=== PATIENT | male | born 1990 | race Caucasian/White ===

== ENCOUNTER 2023-07-29 18:13 | Inpatient (IN) | payer MEDICARE, MEDICAID ==
[~2023-07-29] VITALS: Ht 195.6 cm; Wt 133.4 kg
[~2023-07-29 18:13] MED LIST: DIVA-153 PO; QUET200T PO; TRAZ-257 PO
[2023-07-29] MEDS ORDERED: CHLO100T42 PO ×2 (18:58→19:08)
[2023-07-29] MEDS ORDERED: QUET25TA PO (18:58)
[2023-07-29] MEDS ORDERED: QUET200T PO (18:58)
[2023-07-29] MEDS ORDERED: OMEP20CA12 PO (19:10)
[2023-07-29] MEDS ORDERED: ESCI-8 PO (19:10)
[2023-07-29] MEDS ORDERED: HYDR-4808 PO (19:10)
[2023-07-29] MEDS ORDERED: BENZ-247 PO (19:10)
[2023-07-29 19:13] LABS: BASOPHILS % (AUTO) 0.6 % (0.0-2.0); EOSINOPHILS % (AUTO) 0.4 % (1.0-6.0); HEMATOCRIT 43.9 % (41-53); LYMPHOCYTES # (AUTO) 2.3 K/uL (1.0-4.8); LYMPHOCYTES % (AUTO) 30.5 % (22.0-44.0); MEAN CORPUSCULAR HEMOGLOBIN 30.4 pg (26.0-34.0); MEAN CORPUSCULAR HGB CONC 34.2 G/dL (31.0-37.0); MEAN CORPUSCULAR VOLUME 89 fL (80-100); MONOCYTES # (AUTO) 0.6 K/uL (0.1-1.0); MONOCYTES % (AUTO) 7.8 % (2.0-9.0); NEUTROPHILS # (AUTO) 4.6 K/uL (1.8-7.7); NEUTROPHILS % (AUTO) 60.7 % (40.0-70.0); PLATELET COUNT (AUTO) 297 K/uL (150-450); RED BLOOD CELL COUNT(AUTO) 4.94 MIL/uL (4.50-5.90); RED CELL DISTRIBUTION WIDTH 12.7 % (11.5-14.5); WHITE BLOOD COUNT (AUTO) 7.5 K/uL (4.5-11.0)
[2023-07-29 19:22] LABS: ANION GAP 8 mmol/L (8-16); CALCIUM, TOTAL 9.7 mg/dL (8.8-10.5); CARBON DIOXIDE 29 mmol/L (22-29); CHLORIDE 102 mmol/L (98-107); CREATININE 1.07 mg/dL (0.60-1.30); GLOMERULAR FILTR. RATE CALC > 60 mL/min (>60); GLUCOSE,RANDOM 105 mg/dL (70-110); POTASSIUM 3.9 mmol/L (3.5-5.1); SODIUM SERUM 139 mmol/L (136-145); UREA NITROGEN, BLOOD 21 mg/dL (7-18)
[2023-07-29 19:28] LABS: ALANINE AMINOTRANSFERASE 87 U/L (12-78); ALBUMIN 4.4 g/dL (3.4-5.0); ALKALINE PHOSPHATASE 91 U/L (46-116); ASPARTATE AMINOTRANSFERASE 41 U/L (15-37); BILIRUBIN,TOTAL 0.4 mg/dL (0.1-1.0); TOTAL PROTEIN, SERUM 8.4 g/dL (6.4-8.2)
[2023-07-29 19:41] LABS: ACETAMINOPHEN < 2 mcg/mL (10-30)
[2023-07-29 19:43] LABS: ALCOHOL, BLOOD (SERUM) < 3 mg/dL (0-10)
[2023-07-29 19:53] LABS: SALICYLATE 1.8 mg/dL (2.8-20.0)
[2023-07-29 20:22] LABS: COVID AG,FIA SOURCE NASAL SWAB
[2023-07-29 20:52] LABS: SARS-COV2 (COVID) ANTIGEN,FIA Negative (Negative)
[2023-07-29] MEDS: DiphenhydrAMINE HCL 50 MG/ML VIAL IM ONE (21:20)
[2023-07-29] MEDS: LORazepam 2 MG/ML VIAL IM ONE (21:20)
[2023-07-29] MEDS: ZIPRASIDONE MESYLATE 20 MG/VIAL IM ONE (21:20)
[2023-07-29] MEDS ORDERED: ZOLPIDEM TARTRATE 10 MG TABLET PO PRN (22:00)
[2023-07-29] MEDS ORDERED: MAGNESIUM HYDROXIDE SUSPENSION 30 ML UDCUP PO PRN (22:00)
[2023-07-29] MEDS ORDERED: LOPERAMIDE HCL 2 MG CAPSULE PO PRN (22:00)
[2023-07-29] MEDS ORDERED: LORazepam 2 MG TABLET PO PRN (22:00)
[2023-07-29] MEDS ORDERED: PROMETHAZINE HCL 25 MG TABLET PO PRN (22:00)
[2023-07-29] MEDS ORDERED: OLANZapine 5 MG RAPDIS TABLET PO PRN (22:00)
[2023-07-29] MEDS ORDERED: HydrOXYzine PAMOATE 50 MG CAPSULE PO PRN (22:00)
[2023-07-30 04:36] VITALS: BP 126/89; PULSE 96; RESP 18; TEMP 97.8; O2SAT 95
[2023-07-30 08:23] LABS: APPEARANCE,URINE CLEAR (CLEAR); BILIRUBIN,URINE NEGATIVE (NEGATIVE); COLOR,URINE YELLOW (YELLOW); GLUCOSE, URINE (UA) NEGATIVE (NEGATIVE); KETONES,URINE NEGATIVE (NEGATIVE); LEUKOCYTE ESTERASE ,URINE NEGATIVE (NEGATIVE); NITRATE,URINE NEGATIVE (NEGATIVE); OCCULT BLOOD,URINE NEGATIVE (NEGATIVE); PROTEIN,URINE TRACE mg/dL (NEGATIVE)
[2023-07-30 08:30] LABS: HEMOGLOBIN A1C 5.3 % (3.8-5.6)
[2023-07-30 08:32] LABS: ALCOHOL, URINE DRUG SCREEN NEGATIVE (NEGATIVE); AMPHET/METH SCREEN,URINE NEGATIVE (NEGATIVE); BARBITURATE SCREEN, URINE NEGATIVE (NEGATIVE); BENZODIAZEPINES SCREEN,URINE NEGATIVE (NEGATIVE); CANNABINOID SCREEN,URINE NEGATIVE (NEGATIVE); COCAINE SCREEN,URINE NEGATIVE (NEGATIVE); METHADONE SCREEN, URINE NEGATIVE (NEGATIVE); OPIATE SCREEN,URINE NEGATIVE (NEGATIVE); PHENCYCLIDINE SCREEN,URINE NEGATIVE (NEGATIVE)
[2023-07-30] MEDS: FOLIC ACID 1 MG TABLET PO SCH (08:46)
[2023-07-30] MEDS: MULTIVITAMINS WITH MINERALS, THERAPEUTIC TABLET PO SCH (08:46)
[2023-07-30] MEDS: PARoxetine HCL 20 MG TABLET PO SCH (08:46)
[2023-07-30] MEDS: QUEtiapine FUMARATE 25 MG TABLET PO SCH (08:46)
[2023-07-30] MEDS: BENZTROPINE MESYLATE 1 MG TABLET PO SCH (08:46)
[2023-07-30 08:47] LABS: CHOL/HDL RATIO 3.9 (4.2-7.3); FREE T4 (FREE THYROXINE) 0.89 ng/dL (0.76-1.46); THYROID STIMULATING HORMONE 1.39 uIU/mL (0.36-3.74)
[2023-07-30] MEDS: HydrOXYzine PAMOATE 25 MG CAPSULE PO SCH (08:47)
[2023-07-30] MEDS: ChlorproMAZINE HCL 100 MG TABLET PO SCH ×2 (08:47→20:33)
[2023-07-30] MEDS: THIAMINE 100 MG TABLET PO SCH (08:47)
[2023-07-30 09:19] VITALS: BP 130/70; PULSE 90; RESP 18; TEMP 98.3; O2SAT 100
[2023-07-30 20:23] VITALS: BP 128/80; PULSE 103; TEMP 97.8; O2SAT 98
[2023-07-30] MEDS: QUEtiapine FUMARATE 200 MG TABLET PO SCH (20:33)
[2023-07-30] MEDS: TraZODone HCL 100 MG TABLET PO SCH (20:33)
[2023-07-31 08:13] VITALS: BP 124/75; PULSE 108; RESP 17; TEMP 98.2; O2SAT 97
[2023-07-31] MEDS: QUEtiapine FUMARATE 25 MG TABLET PO SCH (16:34)
[2023-07-31] MEDS: DIVALPROEX SODIUM 500 MG ER TABLET PO SCH (20:40)
[2023-07-31 23:32] VITALS: BP 149/90; PULSE 101; RESP 20; TEMP 96.8; O2SAT 98
[2023-08-01 08:09] VITALS: BP 125/79; PULSE 102; RESP 19; TEMP 97.8; O2SAT 96
[2023-08-01] MEDS ORDERED: LORazepam 2 MG/ML VIAL ONE (09:04)
[2023-08-01 20:11] VITALS: BP 111/59; PULSE 109; RESP 20; TEMP 97.6; O2SAT 97
[2023-08-01] MEDS: MAG HYDROX/ALUMINUM HYD/SIMETH ES 30 ML SUSPENSION UDCUP PO PRN (20:19)
[2023-08-01] MEDS: TUBERCULIN, PURIFIED PROTEIN DERIVATIVE 5 TU/0.1 ML SYRINGE ID ONE (21:05)
[2023-08-02 08:31] VITALS: BP 103/75; PULSE 104; RESP 18; TEMP 96.5; O2SAT 98
[2023-08-02] MEDS: PARoxetine HCL 10 MG TABLET PO SCH (08:50)
[2023-08-02] MEDS ORDERED: OMEPRAZOLE 20 MG CAPSULE PO SCH (16:00)
[2023-08-02 20:07] VITALS: BP 111/71; PULSE 98; RESP 18; TEMP 98.2
[2023-08-03] MEDS: PARoxetine HCL 20 MG TABLET PO SCH (08:24)
[2023-08-03] MEDS: OMEPRAZOLE 20 MG CAPSULE PO SCH (08:25)
[2023-08-03 10:16] VITALS: BP 115/80; PULSE 88; RESP 18; TEMP 98
[2023-08-03 20:24] VITALS: BP 137/94; PULSE 92; RESP 18; TEMP 97.1
[2023-08-04 08:55] VITALS: BP 132/79; PULSE 102; RESP 18; TEMP 97.4; O2SAT 97
[2023-08-04 23:35] VITALS: BP 114/77; PULSE 100; RESP 18; TEMP 97.8; O2SAT 96
[2023-08-05 08:47] VITALS: BP 130/65; PULSE 72; RESP 18; TEMP 97.7; O2SAT 95
[2023-08-05 20:26] VITALS: BP 114/63; PULSE 96; RESP 18; TEMP 97.8; O2SAT 96
[2023-08-06 08:41] VITALS: BP 105/55; PULSE 87; RESP 18; TEMP 97.2; O2SAT 96
[2023-08-06] MEDS: PARoxetine HCL 20 MG TABLET PO SCH (09:07)
[2023-08-06 20:22] VITALS: BP 149/95; PULSE 108; RESP 19; TEMP 97.6; O2SAT 97
[2023-08-07] MEDS: GuaiFENesin/D-METHORPHAN [SUGAR-FREE] 200-20MG/10 ML SYRUP UDCUP PO PRN (02:05)
[2023-08-07 13:20] VITALS: BP 135/81; PULSE 105; RESP 18; TEMP 98.2; O2SAT 96
[2023-08-07 22:16] VITALS: BP 131/87; PULSE 104; TEMP 98.1; O2SAT 96
[2023-08-08 09:06] VITALS: BP 126/82; PULSE 100; RESP 18; TEMP 96.6; O2SAT 96
[2023-08-08 20:19] VITALS: BP 119/77; PULSE 114; TEMP 97.3; O2SAT 93
[2023-08-09 08:26] VITALS: BP 133/84; PULSE 114; RESP 18; TEMP 97.1; O2SAT 97
[2023-08-09] MEDS ORDERED: NICOTINE 21 MG/24 HOUR PATCH TD SCH (10:30)
[2023-08-09 20:22] VITALS: BP 137/88; PULSE 103; RESP 16; TEMP 97.3; O2SAT 96
[2023-08-10 08:09] VITALS: BP 129/85; PULSE 99; RESP 15; TEMP 98.5; O2SAT 95
[2023-08-10 09:47] LABS: APPEARANCE,URINE HAZY (CLEAR); BILIRUBIN,URINE NEGATIVE (NEGATIVE); COLOR,URINE YELLOW (YELLOW); GLUCOSE, URINE (UA) NEGATIVE (NEGATIVE); LEUKOCYTE ESTERASE ,URINE NEGATIVE (NEGATIVE); NITRATE,URINE NEGATIVE (NEGATIVE); OCCULT BLOOD,URINE NEGATIVE (NEGATIVE); PH,URINE 7.5 (5.0-8.0); PROTEIN,URINE TRACE mg/dL (NEGATIVE); SPECIFIC GRAVITIY, URINE 1.032 (1.003-1.030); UROBILINOGEN,URINE <=1.0 mg/dL (<=1.0)
[2023-08-10 20:46] VITALS: BP 117/88; PULSE 103; RESP 16; TEMP 98.4; O2SAT 95
[2023-08-11 15:43] VITALS: BP 122/84; PULSE 98; RESP 18; TEMP 98.2; O2SAT 97
[2023-08-11] MEDS: ACETAMINOPHEN 325 MG TABLET PO PRN (16:19)
[2023-08-11 20:40] VITALS: BP 124/75; PULSE 104; RESP 17; TEMP 97.6; O2SAT 98
[2023-08-12] MEDS: CIPROFLOXACIN HCL 500 MG TABLET PO SCH (09:33)
[2023-08-12] MEDS ORDERED: PARO-37 PO (10:14)
[2023-08-12] MEDS ORDERED: DIVA500T69 PO (10:14)
[2023-08-12] MEDS ORDERED: TRAZ-257 PO (10:14)
[2023-08-12] MEDS ORDERED: QUET200T30 PO (10:14)
[2023-08-12 13:08] VITALS: BP 130/71; PULSE 97; RESP 18; TEMP 97.7; O2SAT 97
[2023-08-12 20:40] VITALS: BP 131/83; PULSE 100; RESP 16; TEMP 98; O2SAT 95
[2023-08-13 08:14] VITALS: BP 128/76; PULSE 85; RESP 17; TEMP 97.9; O2SAT 96
[2023-08-13] MEDS ORDERED: BISACODYL 5 MG EC TABLET PO PRN (09:15)
[2023-08-13] MEDS ORDERED: CIPR500T10 PO (09:50)
== END 2023-08-13 10:45 | disposition home or self-care (01) | DRG 885 ==
LOC: EMS 18:13 → B2X 22:53
PROVIDERS: ADMIT Psychiatry & Neurology Psychiatry; ATTEND Psychiatry & Neurology Psychiatry
PROC: GZHZZZZ Group Psychotherapy (ICD-10-PCS; principal; 2023-07-30)
PROC: GZ51ZZZ Individual Psychotherapy, Behavioral (ICD-10-PCS; 2023-07-30)
DX: F25.1 Schizoaffective disorder, depressive type (principal); T43.212A Poisoning by selective serotonin and norepinephrine reuptake inhibitors, intentional self-harm, initial encounter; G93.41 Metabolic encephalopathy; R45.851 Suicidal ideations; F17.200 Nicotine dependence, unspecified, uncomplicated; Z20.822 Contact with and (suspected) exposure to COVID-19; K21.9 Gastro-esophageal reflux disease without esophagitis; J44.9 Chronic obstructive pulmonary disease, unspecified; E66.9 Obesity, unspecified; K59.00 Constipation, unspecified; Z68.34 Body mass index [BMI] 34.0-34.9, adult; Z91.51 Personal history of suicidal behavior; Y92.89 Other specified places as the place of occurrence of the external cause; Z91.018 Allergy to other foods
CPT/HCPCS: 80053; 80061; 80164; 80307; 81003; 83036; 83735; 84439; 84443; 85025; 86592; 93005; 99285; G0480; G0481; J1200; J2060; J3486

== ENCOUNTER 2023-12-03 21:22 | Inpatient (IN) | payer MEDICARE, MEDICAID ==
[~2023-12-03] VITALS: Ht 195.6 cm; Wt 122.0 kg
[~2023-12-03 21:22] MED LIST changes: +BUPR-514 PO; +MELA5TAB40 PO; +NALT50TA33 PO; +PARO-37 PO; -QUET200T PO; +QUET300T19 PO
[2023-12-03 22:29] LABS: BASOPHILS % (AUTO) 0.3 % (0.0-2.0); HEMOGLOBIN 13.6 g/dL (13.5-17.5); LYMPHOCYTES # (AUTO) 1.8 K/uL (1.0-4.8); LYMPHOCYTES % (AUTO) 29.8 % (22.0-44.0); MEAN CORPUSCULAR HEMOGLOBIN 30.5 pg (26.0-34.0); MEAN CORPUSCULAR HGB CONC 33.2 G/dL (31.0-37.0); MEAN CORPUSCULAR VOLUME 92 fL (80-100); MONOCYTES # (AUTO) 0.7 K/uL (0.1-1.0); MONOCYTES % (AUTO) 11.9 % (2.0-9.0); NEUTROPHILS # (AUTO) 3.4 K/uL (1.8-7.7); PLATELET COUNT (AUTO) 260 K/uL (150-450); RED BLOOD CELL COUNT(AUTO) 4.48 MIL/uL (4.50-5.90); RED CELL DISTRIBUTION WIDTH 12.6 % (11.5-14.5); WHITE BLOOD COUNT (AUTO) 5.9 K/uL (4.5-11.0)
[2023-12-03 22:40] LABS: ANION GAP 6 mmol/L (8-16); CALCIUM, TOTAL 8.5 mg/dL (8.8-10.5); CARBON DIOXIDE 29 mmol/L (22-29); CHLORIDE 103 mmol/L (98-107); GLOMERULAR FILTR. RATE CALC > 60 mL/min (>60); GLUCOSE,RANDOM 148 mg/dL (70-110); POTASSIUM 3.5 mmol/L (3.5-5.1); SODIUM SERUM 138 mmol/L (136-145); UREA NITROGEN, BLOOD 20 mg/dL (7-18)
[2023-12-03 22:51] LABS: ALCOHOL, BLOOD (SERUM) < 3 mg/dL (0-10)
[2023-12-03] MEDS ORDERED: ZOLPIDEM TARTRATE 10 MG TABLET PO PRN (23:30)
[2023-12-03 23:56] LABS: COVID AG,FIA SOURCE NASAL SWAB
[2023-12-04 00:40] LABS: SARS-COV2 (COVID) ANTIGEN,FIA Negative (Negative)
[2023-12-04 02:19] VITALS: O2SAT 95
[2023-12-04 03:33] VITALS: BP 110/67; PULSE 86; RESP 18; TEMP 97.7; O2SAT 97
[2023-12-04 08:19] VITALS: BP 131/65; PULSE 73; RESP 17; TEMP 98.1; O2SAT 96
[2023-12-04] MEDS ORDERED: CloNIDine HCL 0.1 MG TABLET PO PRN (10:30)
[2023-12-04] MEDS ORDERED: NICOTINE 14 MG/24 HOUR PATCH TD PRN (10:30)
[2023-12-04] MEDS ORDERED: ALBUTEROL SULFATE HFA 90 MCG/PUFF 8 GM INHALER IH PRN (10:30)
[2023-12-04] MEDS ORDERED: PETROLATUM,WHITE 28 GM JELLY TP PRN (10:30)
[2023-12-04] MEDS ORDERED: ONDANSETRON 4 MG TABLET PO PRN (10:30)
[2023-12-04] MEDS ORDERED: IBUPROFEN 400 MG TABLET PO PRN (10:30)
[2023-12-04] MEDS ORDERED: DOCUSATE SODIUM 100 MG CAPSULE PO PRN (10:30)
[2023-12-04] MEDS ORDERED: MAGNESIUM HYDROXIDE SUSPENSION 30 ML UDCUP PO PRN (10:30)
[2023-12-04] MEDS ORDERED: LOPERAMIDE HCL 2 MG CAPSULE PO PRN (10:30)
[2023-12-04] MEDS ORDERED: GuaiFENesin/D-METHORPHAN [SUGAR-FREE] 200-20MG/10 ML SYRUP UDCUP PO PRN (10:30)
[2023-12-04] MEDS: DIVALPROEX SODIUM 500 MG ER TABLET PO SCH (20:30)
[2023-12-04] MEDS: TraZODone HCL 100 MG TABLET PO SCH (20:30)
[2023-12-04] MEDS: QUEtiapine FUMARATE 300 MG TABLET PO SCH (20:30)
[2023-12-04] MEDS: MELATONIN 5 MG TABLET PO SCH (20:30)
[2023-12-04 20:55] VITALS: BP 116/63; PULSE 75; RESP 17; TEMP 97.5; O2SAT 95
[2023-12-05 08:11] VITALS: BP 130/74; PULSE 77; RESP 17; TEMP 98; O2SAT 97
[2023-12-05] MEDS: BuPROPion HCL XL 150 MG ER TABLET PO SCH (08:48)
[2023-12-05] MEDS: PARoxetine HCL 20 MG TABLET PO SCH (08:48)
[2023-12-05 09:18] LABS: CHOL/HDL RATIO 2.8 (4.2-7.3); THYROID STIMULATING HORMONE 2.18 uIU/mL (0.36-3.74)
[2023-12-05 09:22] LABS: HEMOGLOBIN A1C 4.9 % (3.8-5.6)
[2023-12-05 21:21] VITALS: BP 119/79; PULSE 90; RESP 18; TEMP 98.5; O2SAT 98
[2023-12-06 08:12] VITALS: BP 128/78; PULSE 90; RESP 17; TEMP 97.6; O2SAT 98
[2023-12-06 10:37] LABS: APPEARANCE,URINE HAZY (CLEAR); BILIRUBIN,URINE NEGATIVE (NEGATIVE); COLOR,URINE YELLOW (YELLOW); GLUCOSE, URINE (UA) NEGATIVE (NEGATIVE); KETONES,URINE NEGATIVE (NEGATIVE); LEUKOCYTE ESTERASE ,URINE NEGATIVE (NEGATIVE); NITRATE,URINE NEGATIVE (NEGATIVE); OCCULT BLOOD,URINE NEGATIVE (NEGATIVE); PH,URINE 7.5 (5.0-8.0); PH,URINE DRUG SCREEN 7.5 (5.0-8.0); PROTEIN,URINE TRACE mg/dL (NEGATIVE); SPECIFIC GRAVITIY, URINE 1.023 (1.003-1.030); UROBILINOGEN,URINE <=1.0 mg/dL (<=1.0)
[2023-12-06 10:46] LABS: ALCOHOL, URINE DRUG SCREEN NEGATIVE (NEGATIVE); AMPHET/METH SCREEN,URINE NEGATIVE (NEGATIVE); BARBITURATE SCREEN, URINE NEGATIVE (NEGATIVE); BENZODIAZEPINES SCREEN,URINE NEGATIVE (NEGATIVE); CANNABINOID SCREEN,URINE POSITIVE (NEGATIVE); COCAINE SCREEN,URINE NEGATIVE (NEGATIVE); METHADONE SCREEN, URINE NEGATIVE (NEGATIVE); OPIATE SCREEN,URINE NEGATIVE (NEGATIVE); PHENCYCLIDINE SCREEN,URINE NEGATIVE (NEGATIVE)
[2023-12-06 20:42] VITALS: BP 126/83; PULSE 97; RESP 18; TEMP 97.5; O2SAT 95
[2023-12-07 08:20] VITALS: BP 116/75; PULSE 80; RESP 18; TEMP 98; O2SAT 99
[2023-12-07 20:29] VITALS: BP 121/81; PULSE 91; RESP 18; TEMP 97.7; O2SAT 95
[2023-12-08 08:52] VITALS: BP 104/73; PULSE 79; RESP 16; TEMP 98.1; O2SAT 99
[2023-12-08 20:49] VITALS: BP 130/73; PULSE 85; RESP 18; TEMP 97.8; O2SAT 98
[2023-12-09 08:09] VITALS: BP 128/65; PULSE 75; RESP 18; TEMP 97.7; O2SAT 98
[2023-12-09] MEDS: BACITRACIN 28 GM OINTMENT TP SCH (12:37)
[2023-12-09 20:25] VITALS: BP 123/77; PULSE 73; RESP 18; TEMP 97.9; O2SAT 98
[2023-12-10] MEDS: MAG HYDROX/ALUMINUM HYD/SIMETH ES 30 ML SUSPENSION UDCUP PO PRN (01:29)
[2023-12-10 08:15] VITALS: BP 125/67; PULSE 79; RESP 17; TEMP 97.4; O2SAT 97
[2023-12-10 20:35] VITALS: BP 174/92; PULSE 92; RESP 18; TEMP 97.2; O2SAT 98
[2023-12-11 11:17] VITALS: BP 119/100; PULSE 84; RESP 18; TEMP 97.7; O2SAT 99
[2023-12-11 23:04] VITALS: BP 129/80; PULSE 98; RESP 18; TEMP 98.3; O2SAT 99
[2023-12-12 08:14] VITALS: BP 138/82; PULSE 99; RESP 18; TEMP 97.7; O2SAT 96
[2023-12-12 11:06] VITALS: BP 138/82; RESP 18; O2SAT 97
[2023-12-12] MEDS: ACETAMINOPHEN 325 MG TABLET PO PRN (11:06)
[2023-12-12 12:06] VITALS: RESP 18; O2SAT 97
[2023-12-12 21:12] VITALS: BP 119/75; PULSE 89; RESP 17; TEMP 97.8; O2SAT 96
[2023-12-13 08:10] VITALS: BP 112/71; PULSE 84; RESP 17; TEMP 97.4; O2SAT 96
[2023-12-13] MEDS: INFLUENZA VIRUS VACCINE TVS (6MO+) 2024-25/PF 45 MCG/0.5 ML SYRINGE IM. ONE (13:19)
[2023-12-13] MEDS: LORazepam 2 MG TABLET PO PRN (16:50)
[2023-12-13 20:52] VITALS: BP 122/75; PULSE 93; RESP 18; TEMP 97.7; O2SAT 98
[2023-12-14 08:13] VITALS: BP 131/83; PULSE 88; RESP 17; TEMP 97.6; O2SAT 98
[2023-12-14 20:25] VITALS: BP 115/77; PULSE 77; RESP 18; TEMP 97.6; O2SAT 96
[2023-12-15 08:27] VITALS: BP 100/66; PULSE 72; RESP 17; TEMP 98; O2SAT 99
[2023-12-15 20:23] VITALS: BP 134/69; PULSE 97; RESP 18; TEMP 97.3; O2SAT 98
[2023-12-16 08:14] VITALS: BP 138/80; PULSE 99; RESP 18; TEMP 97.7; O2SAT 97
[2023-12-16 20:12] VITALS: BP 131/88; PULSE 101; RESP 18; TEMP 97.4; O2SAT 96
[2023-12-16 20:23] VITALS: BP 139/79; PULSE 100; RESP 17; TEMP 97.8; O2SAT 97
[2023-12-16 21:23] VITALS: RESP 18; O2SAT 98
[2023-12-17 08:12] VITALS: BP 124/68; PULSE 96; RESP 18; TEMP 97.7; O2SAT 97
[2023-12-17] MEDS: OLANZapine 5 MG RAPDIS TABLET PO PRN (16:37)
[2023-12-17 22:53] VITALS: BP 128/62; PULSE 98; RESP 16; TEMP 98; O2SAT 98
[2023-12-18 08:17] VITALS: BP 110/68; PULSE 99; RESP 18; TEMP 97.7; O2SAT 96
[2023-12-18 20:34] VITALS: BP 110/68; PULSE 99; RESP 18; TEMP 97.7; O2SAT 96
[2023-12-18 22:20] VITALS: BP_SYST 124; BP_SYST 129; BP_DIAS 71; BP_DIAS 73; PULSE 69; PULSE 98; RESP 18; TEMP 97.5; TEMP 98.4; O2SAT 96; O2SAT 99
[2023-12-19 08:37] VITALS: BP 128/70; PULSE 72; RESP 18; TEMP 98.8; O2SAT 99
== END 2023-12-19 16:54 | disposition home or self-care (01) | DRG 885 ==
LOC: EMS 21:22 → B2X 12-04 02:53
PROVIDERS: ADMIT Psychiatry & Neurology Child & Adolescent Psychiatry; ATTEND Psychiatry & Neurology Child & Adolescent Psychiatry
PROC: GZHZZZZ Group Psychotherapy (ICD-10-PCS; principal; 2023-12-05)
PROC: GZ56ZZZ Individual Psychotherapy, Supportive (ICD-10-PCS; 2023-12-05)
DX: F25.1 Schizoaffective disorder, depressive type (principal); R45.851 Suicidal ideations; I10 Essential (primary) hypertension; Z20.822 Contact with and (suspected) exposure to COVID-19; F17.210 Nicotine dependence, cigarettes, uncomplicated; F31.9 Bipolar disorder, unspecified; F41.9 Anxiety disorder, unspecified; G47.00 Insomnia, unspecified; R73.9 Hyperglycemia, unspecified; F12.10 Cannabis abuse, uncomplicated; Z79.899 Other long term (current) drug therapy
CPT/HCPCS: 80048; 80061; 80164; 80307; 81003; 83036; 84443; 85025; 90686; 99285; G0480